=== PATIENT | male | born 1975 | race Caucasian/White ===

== ENCOUNTER → 2020-09-29 08:11 | Outpatient (REF) | payer OTHER, SELFPAY ==
--- NOTE | 2020-09-29 09:54 | ECG_ITS ---
Test Reason : SOB Blood Pressure : / mmHG Vent. Rate : 084 BPM Atrial Rate : 084 BPM P-R Int : 144 ms QRS Dur : 094 ms QT Int : 362 ms P-R-T Axes : 057 -13 033 degrees QTc Int : 427 ms Normal sinus rhythm Normal ECG No previous ECGs available Referred By: Juan Ramon Zuniga Electronically Signed By:VANNESA LEVIN MD
--- NOTE | 2020-09-29 10:07 | XR_ITS ---
EXAMINATION: XR CHEST CLINICAL INFORMATION: Asthma COMPARISON: October 04, 2011 TECHNIQUE: 2 views of the chest were obtained. FINDINGS: There is no evidence of acute parenchymal disease, pneumothorax, or pleural effusion. Heart normal size. No evidence of pulmonary edema. Endothoracic fat deposition is noted bilaterally. XR/XR chest 2V IMPRESSION: No acute disease.
== END ==
LOC: HO.CARD 08:11
PROVIDERS: PCP Internal Medicine; Visit Provider Surgery
DX: E66.01 Morbid (severe) obesity due to excess calories (principal); K21.9 Gastro-esophageal reflux disease without esophagitis; E03.9 Hypothyroidism, unspecified; G47.30 Sleep apnea, unspecified; J45.909 Unspecified asthma, uncomplicated; Z79.899 Other long term (current) drug therapy
CPT/HCPCS: 71046; 93005

== ENCOUNTER 2020-10-03 08:35 | Outpatient (REF) | payer OTHER, SELFPAY ==
[2020-10-03 09:45] LABS: MANUAL DIFF FLAG NO
[2020-10-03 09:54] LABS: Basophils Percent Auto 0.4 % (0-2); Eosinophils Absolute Auto 0.1 X10*3/uL (0.0-0.4); Eosinophils Percent Auto 2.4 % (0-4); Hematocrit 46.2 % (42-52); Hemoglobin 16.2 g/dl (14.0-18.0); Imm Gran Abs Auto 0.01 X10*3/uL (0.00-0.03); Imm Gran Pct Auto 0.2 % (0.0-0.4); Lymphocytes Absolute Auto 1.2 X10*3/uL (1.2-4.9); Lymphocytes Percent Auto 21.9 % (20-40); Mean Corpuscular HGB Conc 35.1 g/dl (31.0-36.0); Mean Corpuscular Volume 88.5 fL (80-98); Mean Platelet Volume 11.1 fL (9.4-12.4); Monocytes Absolute Auto 0.5 X10*3/uL (0.1-1.2); Monocytes Percent Auto 9.7 % (2-11); Neutrophils Absolute Auto 3.6 X10*3/uL (2.0-8.3); Neutrophils Percent Auto 65.4 % (45-73); Platelet Count 182 X10*3/uL (160-400); Red Blood Count 5.22 X10*6/uL (4.60-5.80); White Blood Count 5.5 X10*3/uL (4.8-10.8)
[2020-10-03 10:16] LABS: Estimated Average Glucose 220 mg/dL; Hemoglobin A1c % 9.3 %
[2020-10-03 10:37] LABS: Alanine Aminotransferase 183 U/L (0-40); Albumin Level 4.4 g/dL (3.5-5.0); Alkaline Phosphatase 70 U/L (39-117); Anion Gap 17 (12-20); Aspartate Amino Transferase 76 U/L (5-37); Bilirubin Total 0.8 mg/dL (0.0-1.0); Blood Urea Nitrogen 22 mg/dL (9-16); C Reactive Protein 0.51 mg/dL (< or = 0.50); Calcium 9.5 mg/dL (8.4-10.2); Carbon Dioxide 22 mmol/L (22-29); Chloride 103 mmol/L (96-108); Cholesterol 230 mg/dL; Estimated Glomerular Filt Rate > 60; Glucose Random 244 mg/dL (60-115); HDL Cholesterol 53 mg/dL; LDL Cholesterol Calculated 143 mg/dl; Sodium 138 mmol/L (135-145); Total Protein 6.8 g/dL (6.5-8.0); Triglycerides 171 mg/dL
[2020-10-03 10:44] LABS: Ferritin 1055 ng/mL (20-250); TSH reflex Free T4 6.09 mIU/mL (0.32-4.0); Vitamin D 25-OH Total 15.6 ng/mL (>30)
[2020-10-03 10:50] LABS: Vitamin B12 442 pg/mL (200-900)
[2020-10-03 11:16] LABS: Free T4 (Free Thyroxine) 0.97 ng/dL (0.71-1.85)
[2020-10-04 17:33] LABS: Insulin Level Total 33.9 uIU/mL
[2020-10-05 10:42] LABS: Calcium (PTHI) 9.9 mg/dL (8.6-10.3); PTHI 33 pg/mL (14-64)
[2020-10-06 00:53] LABS: Zinc 86 mcg/dL (60-130)
[2020-10-06 18:33] LABS: Vitamin B1 7 nmol/L (8-30)
[2020-10-08 16:07] LABS: Vitamin A 61 mcg/dL (38-98)
== END 2020-10-03 08:36 | disposition home or self-care (01) ==
LOC: HO.LAB 08:35
PROVIDERS: PCP Internal Medicine; Visit Provider Surgery
DX: J45.909 Unspecified asthma, uncomplicated (principal); G47.30 Sleep apnea, unspecified; K21.9 Gastro-esophageal reflux disease without esophagitis; E03.9 Hypothyroidism, unspecified; E66.01 Morbid (severe) obesity due to excess calories
CPT/HCPCS: 36415; 80053; 80061; 82306; 82607; 82728; 82746; 83036; 83525; 83970; 84425; 84439; 84443; 84590; 84630; 85025; 86140

== ENCOUNTER 2020-10-06 06:58 | Day surgery (SDC) | payer OTHER, SELFPAY ==
[2020-10-05 10:48] VITALS: BMI 40.1
--- NOTE | 2020-10-05 12:54 | HO.ANESPROP2 ---
Documented by User: Pamela Fang 10/05/20 12:56 HPI - Anesthesia Eval Consult details Narrative: 45yo M for Upper Endoscopy PMFSH Past Medical History Medical History (Updated 09/29/20 @ 08:28 by Juan Ramon Zuniga MD) Asthma GERD (gastroesophageal reflux disease) Hypothyroidism Insomnia Insulin dependent diabetes mellitus Morbid obesity Sleep apnea Steatosis, liver Family History Family History (Updated 09/29/20 @ 08:31 by Jaun Ramon Zuniga MD) Father No problems noted. Mother No problems noted. Surgical History Surgical History (Updated 09/29/20 @ 08:28 by Juan Ramon Zuniga MD) H/O discectomy H/O rotator cuff surgery H/O umbilical hernia repair History of spinal fusion Social History Social History (Updated 09/29/20 @ 08:29 by Juan Ramon Zuniga MD) Alcohol intake: current Alcohol type: beer and wine Smoking Status: Former smoker Tobacco Type: Cigarette Cigarettes Per Day: 12 Years Smoked: 20 Use of substances other than those prescribed or required for medical reasons: No Advance Directives: No Advance Directives Information Provided: No Advance Directives on File: No Meds Allergies Allergy/AdvReac Type Severity Reaction Status Date / Time No Known Allergies Allergy Verified 09/29/20 08:15 Home Medications Medication Instructions Recorded Confirmed Type albuterol sulfate 90 mcg/actuation 2 puff INHALATION Q4-6H PRN 09/29/20 09/29/20 History aerosol inhaler fluticasone furoate 200 1 inh INHALATION DAILY 09/29/20 09/29/20 History mcg-vilanterol 25 mcg/dose inhalation powder insulin glargine 100 unit/mL 20 unit SUBCUT DAILY 09/29/20 09/29/20 History subcutaneous solution levothyroxine 13 mcg capsule 13 mcg PO DAILY 09/29/20 09/29/20 History metformin 500 mg tablet 500 mg PO BID 09/29/20 09/29/20 History omeprazole 40 mg capsule,delayed 40 mg PO DAILY 09/29/20 09/29/20 History release trazodone 150 mg tablet 150 mg PO BEDTIME PRN 09/29/20 09/29/20 History Exam Exam Date and Time: October 05, 2020 1254 Height,Weight and Vital Signs: Height 6 ft 2 in Weight 141.974 kg Pertinent Lab Results Pertinent Lab Results: Laboratory Tests 10/03/20 10/03/20 08:55 08:55 WBC 5.5 Hgb 16.2 Hct 46.2 Plt Count 182 Sodium 138 Potassium 4.0 Chloride 103 Carbon Dioxide 22 BUN 22 H Creatinine 1.01 Assessment and Plan Assessment Anesthesia Assessment: Chart Reviewed Documented by User: Dimitry Mao 10/06/20 07:21 PMF Past Medical History Medical History (Updated 09/29/20 @ 08:28 by Juan Ramon Zuniga MD) Asthma GERD (gastroesophageal reflux disease) Hypothyroidism Insomnia Insulin dependent diabetes mellitus Morbid obesity Sleep apnea Steatosis, liver Family History Family History (Updated 09/29/20 @ 08:31 by Juan Ramon Zuniga MD) Father No problems noted. Mother No problems noted. Surgical History Surgical History (Updated 09/29/20 @ 08:28 by Juan Ramon Zuniga MD) H/O discectomy H/O rotator cuff surgery H/O umbilical hernia repair History of spinal fusion Social History Social History (Updated 09/29/20 @ 08:29 by Juan Ramon Zuniga MD) Alcohol intake: current Alcohol type: beer and wine Smoking Status: Former smoker Tobacco Type: Cigarette Cigarettes Per Day: 12 Years Smoked: 20 Use of substances other than those prescribed or required for medical reasons: No Advance Directives: No Advance Directives Information Provided: No Advance Directives on File: No Meds Allergies Allergy/AdvReac Type Severity Reaction Status Date / Time No Known Allergies Allergy Verified 09/29/20 08:15 Home Medications Medication Instructions Recorded Confirmed Type albuterol sulfate 90 mcg/actuation 2 puff INHALATION Q4-6H PRN 09/29/20 09/29/20 History aerosol inhaler fluticasone furoate 200 1 inh INHALATION DAILY 09/29/20 09/29/20 History mcg-vilanterol 25 mcg/dose inhalation powder insulin glargine 100 unit/mL 20 unit SUBCUT DAILY 09/29/20 09/29/20 History subcutaneous solution levothyroxine 13 mcg capsule 13 mcg PO DAILY 09/29/20 09/29/20 History metformin 500 mg tablet 500 mg PO BID 09/29/20 09/29/20 History omeprazole 40 mg capsule,delayed 40 mg PO DAILY 09/29/20 09/29/20 History release trazodone 150 mg tablet 150 mg PO BEDTIME PRN 09/29/20 09/29/20 History Exam Airway Mallampati Class: II TM Dist: >3cm Neck ROM: Full Loose/Missing/Broken Teeth: No Heart: rrr+[id number] Lungs: cta b/l Assessment and Plan Assessment Anesthesia Assessment: Anesthesia Plan Discussed, PAT Visit and Chart Reviewed Final Anesthetic Review NPO: Yes ASA Class: II and III Final Preanesthetic Review: No Changes in Pt Med Stat, Meds/Allgs Chart Reviewed, Consent Obtained/Reviewed and Anes Risks/Benef Reviewed Patient Risk: Low Procedure Risk: Low Assessment/Block/Sedation in SS: Assess/Block/Sedation-SS Anesthetic Plan Anesthetic Plan: MAC: Disposition: Standard PACU
--- NOTE | 2020-10-05 22:11 | MHC.SHP ---
Pre-Procedural Eval Section A The patient is an INPATIENT: No The History & Physical has been completed within 30 days and I have reviewed it.: Yes Section B Chief Complaint: GERD Details of Present Illness: GERD Relevant Family History (Specify if Yes): No Relevant Social History: None Present Medications: see Short Stay Collaborative assessment Medical History: No relevant PMH History of Previous Operations: No relevant previous surgery Allergies: Allergies Allergy/AdvReac Type Severity Reaction Status Date / Time No Known Allergies Allergy Verified 09/29/20 08:15 Review of Systems Sugical H&P ROS: Negative: Constitution, Cardiovascular, Respiratory, Neurological, Psychiatric, Hem-Onc, Allergic/Immunologic, Gastrointestinal, Genitourinary, Musculoskeletal, Integumentary, Endocrine and Eyes/Ears/Nose/Throat Exam Surgical H&P Exam: Normal: HEENT, Normal: Heart, Normal: Lungs, Normal: Extremities, Normal: Abdomen, Normal: Skin and Normal: Neurological Plan Diagnosis/Plan: Unchanged I have reviewed the history and physical and performed a pertinent physical examination on my patient. No changes have occurred unless specified.
[2020-10-06 07:27] VITALS: BP 129/83; PULSE 90; RESP 18; TEMP 36.7; O2SAT 96; BMI 38.6
[2020-10-06 07:36] LABS: Glucose, Whole Blood 179 mg/dL (60-115)
[2020-10-06] MEDS: Lactated Ringers 1,000 ML 100 ML IVCONT (07:37)
--- NOTE | 2020-10-06 07:54 | PM.OP ---
Brief Operative Note Date of Service: 10/06/20 Pre-op diagnosis: GERD Post-op diagnosis: same (1) esophagitis grade I, 2) gastritis) Procedure: PROCEDURE DATE: 10/06/2020 PREOPERATIVE DIAGNOSIS: GERD, POSTOPERATIVE DIAGNOSIS: Same as above. 1) esophagitis grade I PROCEDURE: [id number] with biopsies Surgeon: Herman Zuniga M.D.. Ph.D. Inspector Optical Instrument: None Anesthesia: IV sedation Estimated blood loss: Minimal FINDINGS AND PROCEDURE: OPERATIVE INDICATIONS: The patient is a 45 year old male known to ms who is being evaluated for morbid obesity. The patient has significant history of GERD and is PPI-dependent. Based on this information I recommended an upper endoscopy to evaluate the patient's symptoms. Risks and complications of the surgery were discussed with the patient in advance particularly the possibility of perforation or bleeding that may require surgical intervention. The patient understood the risks and was in agreement with the plan. PROCEDURE: After informed consent was obtained by the patient, the patient was transferred to the Operating Room and was placed in the supine position. After successful induction of IV sedation, a mouth block was inserted and the patient was placed in the left lateral decubitus position. An upper endoscopy was performed next, the oropharynx and esophagus appeared within the normal limits. There was no hiatal hernia. The z-line was irregular with tongues of gastric mucosa protruding into the esophagus in less than 25% circumference. Two biopsies were obtained from the distal esophagus 2-3 cm proximal to the GE junction and two additional biopsies from the GE junction. The stomach was entered and it appeared to be of normal size. There was mild gastritis at the antrum. There was no stricture or ulcer. Biopsies were obtained from the proximal stomach as well as the distal antrum. No significant bleeding was noted from any of the biopsy sites. The scope was then advanced into the duodenum which appeared to be normal as well. At that point the duodenum and the sleeve were decompressed and the scope was withdrawn from the patient's mouth. The patient extubated and was transferred in stable condition to the Recovery Room for further care. I was present and performed all steps of the procedure. There were no residents to assist with this case. Herman Zungia M.D., Ph.D. Surgeon: Juan Ramon Zuniga MD Anesthesia: MAC Estimated blood loss (mL): 0 IV fluids (mL): 500 Urine output (mL): 0 (No Flores to record) Pathology: other (1) GE junction x2, 2) distal esophagus x2, 3) Proximal stomach x1, 4) Pre-pyloric stomach x1) Condition: stable Disposition: PACU
[2020-10-06 08:02] LABS: COVID-19 Test Negative (Negative)
[2020-10-06 08:36] VITALS: BP 109/61; PULSE 92; RESP 12; TEMP 36.1; O2SAT 97
[2020-10-06 08:51] VITALS: BP 107/61; PULSE 82; RESP 16; O2SAT 95
[2020-10-06 09:06] VITALS: BP 106/69; PULSE 70; RESP 16; O2SAT 96
--- NOTE | 2020-10-06 09:31 | HO.POSTANES ---
Post Anesthesia Evaluation Post Anesthesia Evaluation Vital Signs: Vital Signs Temp Pulse Resp BP Pulse Ox 10/06/20 09:06 97 F 70 16 106/69 96 10/06/20 08:51 82 16 107/61 95 10/06/20 08:36 97 F 92 12 109/61 97 10/06/20 07:27 98.0 F 90 18 129/83 96 Anesthesia: Monitored Mental Status: Awake Pain Control: Satisfactory Nausea/Vomiting: None Hydration: Adequate Anesthesia-Related Issues: No Anes. Related Issues
== END 2020-10-06 09:33 ==
LOC: HO.SSS 06:58
PROVIDERS: PCP Internal Medicine; Visit Provider Surgery
PROC: 0DJ08ZZ Inspection of Upper Intestinal Tract, Via Natural or Artificial Opening Endoscopic (ICD-10-PCS; CPT 43235; principal; 2020-10-06 08:10)
DX: K21.00 Gastro-esophageal reflux disease with esophagitis, without bleeding (principal); K29.50 Unspecified chronic gastritis without bleeding; E66.01 Morbid (severe) obesity due to excess calories; Z68.41 Body mass index [BMI] 40.0-44.9, adult; E11.9 Type 2 diabetes mellitus without complications; Z79.4 Long term (current) use of insulin; G47.30 Sleep apnea, unspecified; J45.909 Unspecified asthma, uncomplicated; F17.210 Nicotine dependence, cigarettes, uncomplicated; Z79.51 Long term (current) use of inhaled steroids; Z79.899 Other long term (current) drug therapy
CPT/HCPCS: 43239; 36415; 82947; 87635; 88305; 88342

== ENCOUNTER → 2020-10-17 11:22 | Outpatient (BNVA) | payer OTHER, SELFPAY | PROVIDERS: PCP Internal Medicine; Visit Provider Surgery ==

== ENCOUNTER → 2020-10-24 08:11 | Outpatient (BNVA) | payer OTHER, SELFPAY | PROVIDERS: PCP Internal Medicine; Visit Provider Dietitian, Registered ==

== ENCOUNTER 2020-11-02 08:44 | Outpatient (REF) | payer OTHER, SELFPAY ==
--- NOTE | ~2020-11-02 | FL_ITS ---
EXAMINATION: XR GI SERIES CLINICAL INFORMATION: Asthma COMPARISON: None TECHNIQUE: Air contrast upper GI examination FINDINGS: There is normal apposition of the vocal cords while saying E. There is normal elevation of the soft palate while saying Candy. There is no evidence of nasopharyngeal reflux or tracheal aspiration. The esophagus has normal distensibility without abnormal mass, stricture, or ulceration. No hiatal hernia. There was a wisp of gastroesophageal reflux elicited on water siphon test which cleared very rapidly. There is normal distensibility of the stomach without abnormal mass or ulceration. There was no delay in gastric emptying. The duodenal bulb and sweep appeared unremarkable. FLUOROSCOPY TIME: 2.0 Minutes DOSE AREA PRODUCT: 20.753 Gy centimeters squared FL/FL upper GI series IMPRESSION: Essentially unremarkable air-contrast upper GI examination.
--- NOTE | ~2020-11-02 | US_ITS ---
EXAMINATION: US COMPLETE ABDOMEN WITH LIVER ELASTOGRAPHY CLINICAL INFORMATION: Obesity COMPARISON: None. TECHNIQUE: Real-time imaging of the abdominal viscera. Noninvasive ultrasound liver fibrosis assessment is performed using Micheal ElastPQ point quantification shear wave elastography (pSWE) with a C5-2 MHz transducer. Multiple elastography samples are obtained. FINDINGS: PANCREAS: Not well visualized due to bowel gas ABDOMINAL AORTA: The proximal, middle, and distal aortic segments are normal in caliber. INFERIOR VENA CAVA: Visualized portions are normal. LIVER: Liver echotexture is increased probably representing fatty infiltration. There are hypoechoic areas adjacent to the gallbladder and in the periportal region which are characteristic location for focal fatty sparing. The liver contour is normal. The liver is enlarged. No focal lesion or intrahepatic biliary duct dilatation. The right lobe measures 23 cm in length. The left lobe measures 14 cm in length. Portal flow is normal/hepatopedal Shear wave liver elastography median stiffness is 1.7 m/s (reference: normal median stiffness is 1.3 m/s or less). IQR/median stiffness to assess sampling precision is 0.2 (reference: good quality data set is IQR/median stiffness of 0.15 or less). GALLBLADDER: Normal. The gallbladder is physiologically distended without evidence of stones, sludge, polyps, wall thickening or pericholecystic fluid. COMMON BILE DUCT: Normal in caliber measuring 0.6 cm in diameter. RIGHT KIDNEY: Normal. No hydronephrosis. No renal calculi or focal parenchymal lesions. The kidney measures 12.4 cm in maximum dimension. LEFT KIDNEY: Normal. No hydronephrosis. No renal calculi or focal parenchymal lesions. The kidney measures 13 cm in maximum dimension. SPLEEN: The spleen is slightly enlarged.. The spleen measures 14 cm in maximum dimension. FREE FLUID: None. US/US abdomen comp w elastography IMPRESSION: 1. Impression: Enlarged echogenic liver probably representing fatty infiltration. Slightly enlarged spleen. Limited visualization of the pancreas. 2. Liver elastography: Liver stiffness is elevated questionable for compensated advanced chronic liver disease. Further testing for confirmation should be considered. REFERENCE: Society of Radiologists in Ultrasound Liver Stiffness Thresholds (2020): LIVER STIFFNESS THRESHOLDS: *Liver Stiffness equal or less than 1.3 m/s: High probability of being normal. *Liver Stiffness less than 1.7 m/s: In the absence of other known clinical signs, rules out compensated advanced chronic liver disease. *Liver Stiffness 1.7-2.1 m/s: Suggestive of compensated advanced chronic liver disease but need further test for confirmation. *Liver Stiffness over 2.1 m/s: Rules in compensated advanced chronic liver disease. *Liver Stiffness over 2.4 m/s: Suggestive of clinically significant portal hypertension. QUALITY OF DATA SET: *IQR/Median value equal or less than 0.15 implies a quality data set. *IQR/Median value over 0.15 implies a poor quality data set. SIGNIFICANT CHANGE FROM PRIOR EXAM: Significant change if liver stiffness measurement is 10% or greater from prior exam. OTHER CONSIDERATIONS: The stage of liver fibrosis may be overestimated in the setting of acute hepatitis, liver inflammation, elevated liver function tests, hepatic vascular congestion, obstructive cholestasis, non-fasting state, and infiltrative diseases such as amyloidosis and lymphoma. In some patients with NAFLD, the liver stiffness thresholds for compensated advanced chronic liver disease may be lower. In causes other than viral hepatitis and NAFLD, liver stiffness thresholds are not well established.
== END 2020-11-02 08:45 | disposition home or self-care (01) ==
LOC: HO.US 08:44
PROVIDERS: Visit Provider Surgery
DX: Z01.818 Encounter for other preprocedural examination (principal); E66.01 Morbid (severe) obesity due to excess calories; K21.9 Gastro-esophageal reflux disease without esophagitis; E03.9 Hypothyroidism, unspecified; G47.30 Sleep apnea, unspecified; J45.909 Unspecified asthma, uncomplicated
CPT/HCPCS: 74240; 76705; 76981

== ENCOUNTER → 2020-11-08 11:16 | Outpatient (BNVA) | payer OTHER, SELFPAY | PROVIDERS: PCP Internal Medicine; Visit Provider Social Worker Clinical ==

== ENCOUNTER → 2020-11-14 08:18 | Outpatient (BNVA) | payer OTHER, SELFPAY | PROVIDERS: PCP Internal Medicine; Visit Provider Surgery ==

== ENCOUNTER → 2020-11-17 08:07 | Outpatient (BNVA) | payer OTHER, SELFPAY | PROVIDERS: PCP Internal Medicine; Visit Provider Dietitian, Registered ==

== ENCOUNTER → 2020-11-29 08:13 | Outpatient (BNVA) | payer OTHER, SELFPAY | PROVIDERS: PCP Internal Medicine; Visit Provider Physician Assistant ==

== ENCOUNTER → 2020-12-02 19:31 | Outpatient (BNVA) | payer OTHER, SELFPAY | PROVIDERS: PCP Internal Medicine; Visit Provider Surgery ==

== ENCOUNTER 2020-12-03 09:56 | Outpatient (REF) | payer OTHER, SELFPAY ==
[2020-12-03 11:55] LABS: MANUAL DIFF FLAG NO
[2020-12-03 12:16] LABS: Basophils Percent Auto 0.6 % (0-2); Eosinophils Absolute Auto 0.1 X10*3/uL (0.0-0.4); Eosinophils Percent Auto 2.6 % (0-4); Hematocrit 47.1 % (42-52); Imm Gran Abs Auto 0.01 X10*3/uL (0.00-0.03); Imm Gran Pct Auto 0.2 % (0.0-0.4); Lymphocytes Absolute Auto 0.9 X10*3/uL (1.2-4.9); Lymphocytes Percent Auto 17.6 % (20-40); Mean Corpuscular Hemoglobin 30.7 pg (27.0-33.0); Mean Corpuscular Volume 90.2 fL (80-98); Mean Platelet Volume 11.4 fL (9.4-12.4); Monocytes Absolute Auto 0.5 X10*3/uL (0.1-1.2); Monocytes Percent Auto 10.1 % (2-11); Neutrophils Absolute Auto 3.7 X10*3/uL (2.0-8.3); Neutrophils Percent Auto 68.9 % (45-73); Platelet Count 181 X10*3/uL (160-400); Red Blood Count 5.22 X10*6/uL (4.60-5.80); Red Cell Distribution Width 12.7 % (11.0-16.0); White Blood Count 5.4 X10*3/uL (4.8-10.8)
[2020-12-03 12:24] LABS: Prothrombin Time 12.3 SEC (10.8-13.0)
[2020-12-03 12:26] LABS: Partial Thromboplastin Time 34.2 SEC (24.1-38.0)
[2020-12-03 12:29] LABS: Estimated Average Glucose 114 mg/dL; Hemoglobin A1c % 5.6 %
[2020-12-03 13:01] LABS: Alanine Aminotransferase 83 U/L (0-40); Albumin Level 4.5 g/dL (3.5-5.0); Alkaline Phosphatase 54 U/L (39-117); Anion Gap 13 (12-20); Aspartate Amino Transferase 53 U/L (5-37); Bilirubin Total 0.7 mg/dL (0.0-1.0); Blood Urea Nitrogen 20 mg/dL (9-16); C Reactive Protein 0.43 mg/dL (< or = 0.50); Calcium 9.4 mg/dL (8.4-10.2); Carbon Dioxide 26 mmol/L (22-29); Chloride 105 mmol/L (96-108); Cholesterol 187 mg/dL; Estimated Glomerular Filt Rate > 60; Glucose Random 111 mg/dL (60-115); HDL Cholesterol 69 mg/dL; LDL Cholesterol Calculated 105 mg/dl; Potassium 4.4 mmol/L (3.3-5.1); Sodium 140 mmol/L (135-145); Triglycerides 66 mg/dL
[2020-12-03 13:08] LABS: TSH reflex Free T4 2.34 uIU/mL (0.32-4.0)
[2020-12-05 21:42] LABS: Insulin Level Total 25.6 uIU/mL
== END 2020-12-03 09:57 | disposition home or self-care (01) ==
LOC: HO.LAB 09:56
PROVIDERS: PCP Internal Medicine; Visit Provider Surgery
DX: Z13.89 Encounter for screening for other disorder (principal)
CPT/HCPCS: 36415; 80053; 80061; 83036; 83525; 84443; 85025; 85610; 85730; 86140; 86850; 86900

== ENCOUNTER 2020-12-06 08:22 | Inpatient (IN) | payer OTHER, SELFPAY ==
[2020-12-05 10:05] VITALS: BMI 35.3
--- NOTE | 2020-12-05 11:46 | HO.ANESPROP2 ---
Documented by User: Pamela Annalisa 12/05/20 11:51 HPI - Anesthesia Eval Consult details Narrative: 45yo M for Gastrectomy Sleeve Severe PONV PMFSH Active Problems Active Problems: All Active Problems (Updated 12/05/20 @ 10:00 by Sera Rodgers) Vitamin B1 deficiency (Acute) Vitamin B12 deficiency (Acute) Esophagitis determined by endoscopy (Acute) Obesity (Acute) BMI 38.0-38.9,adult (Acute) BMI 37.0-37.9, adult (Acute) Adjustment disorder, unspecified (Acute) BMI over 35 (Acute) Insomnia (Acute) Asthma (Acute) Steatosis, liver (Acute) Sleep apnea (Acute) GERD (gastroesophageal reflux disease) (Acute) Hypothyroidism (Acute) Insulin dependent diabetes mellitus (Acute) Morbid obesity (Acute) Past Medical History Medical History Asthma Back pain Depression GERD (gastroesophageal reflux disease) Hypothyroidism Insomnia Insulin dependent diabetes mellitus Morbid obesity Numbness in both legs PONV (postoperative nausea and vomiting) Sleep apnea Steatosis, liver Family History Family History Father No problems noted. Mother No problems noted. Surgical History Surgical History H/O discectomy H/O rotator cuff surgery H/O umbilical hernia repair History of spinal fusion Social History Social History Are you a primary patient care coordinator to a significant other at home: No Do you presently have visiting nurse or other home services: No Alcohol intake: current Alcohol intake frequency: holidays/special occasions only Alcohol type: beer and wine Smoking Status: Former smoker Years Smoked: 20 Smoking Quit Date: 1999 Use of substances other than those prescribed or required for medical reasons: No Have you been hit, kicked, punched, or otherwise hurt by someone within the past year? If so, by whom?: No Advance Directives: No Advance Directives Information Provided: No Advance Directives on File: No Meds Allergies Allergy/AdvReac Type Severity Reaction Status Date / Time No Known Allergies Allergy Verified 12/05/20 10:00 Home Medications Medication Instructions Recorded Confirmed Last Taken Type albuterol sulfate 90 mcg/actuation 2 puff INHALATION Q4-6H PRN 09/29/20 12/05/20 Unknown History aerosol inhaler fluticasone furoate 200 1 inh INHALATION DAILY 09/29/20 12/05/20 Unknown History mcg-vilanterol 25 mcg/dose inhalation powder insulin glargine 100 unit/mL 20 unit SUBCUT BEDTIME 09/29/20 12/05/20 Unknown History subcutaneous solution metformin 500 mg tablet 500 mg PO BID 09/29/20 12/05/20 Unknown History trazodone 150 mg tablet 150 mg PO BEDTIME PRN 09/29/20 12/05/20 Unknown History ondansetron HCl [Zofran] 4 mg PO Q12H PRN 12/05/20 12/05/20 Unknown History Exam Exam Date and Time: December 05, 2020 1146 Height,Weight and Vital Signs: Height 6 ft 2 in Weight 124.738 kg Pertinent Lab Results Pertinent Lab Results: Laboratory Tests 12/03/20 10:41 Blood Type A Positive Antibody Screen NEGATIVE Laboratory Tests 12/03/20 12/03/20 11:09 11:09 WBC 5.4 Hgb 16.0 Hct 47.1 Plt Count 181 Sodium 140 Potassium 4.4 Chloride 105 Carbon Dioxide 26 BUN 20 H Creatinine 0.92 Narrative Narrative: EKG 09/2020 Normal sinus rhythm Normal ECG No previous ECGs available Assessment and Plan Assessment Anesthesia Assessment: Chart Reviewed Documented by User: Dimitry Mao 12/06/20 10:31 [facility] Past Medical History Medical History Asthma Back pain Depression GERD (gastroesophageal reflux disease) Hypothyroidism Insomnia Insulin dependent diabetes mellitus Morbid obesity Numbness in both legs PONV (postoperative nausea and vomiting) Sleep apnea Steatosis, liver Family History Family History Father No problems noted. Mother No problems noted. Surgical History Surgical History H/O discectomy H/O rotator cuff surgery H/O umbilical hernia repair History of spinal fusion Social History Social History Are you a primary patient care coordinator to a significant other at home: No Do you presently have visiting nurse or other home services: No Alcohol intake: current Alcohol intake frequency: holidays/special occasions only Alcohol type: beer and wine Smoking Status: Former smoker Years Smoked: 20 Smoking Quit Date: 1999 Use of substances other than those prescribed or required for medical reasons: No Have you been hit, kicked, punched, or otherwise hurt by someone within the past year? If so, by whom?: No Advance Directives: No Advance Directives Information Provided: No Advance Directives on File: No Meds Allergies Allergy/AdvReac Type Severity Reaction Status Date / Time No Known Allergies Allergy Verified 12/05/20 10:00 Home Medications Medication Instructions Recorded Confirmed Last Taken Type albuterol sulfate 90 mcg/actuation 2 puff INHALATION Q4-6H PRN 09/29/20 12/05/20 Unknown History aerosol inhaler fluticasone furoate 200 1 inh INHALATION DAILY 09/29/20 12/05/20 Unknown History mcg-vilanterol 25 mcg/dose inhalation powder insulin glargine 100 unit/mL 20 unit SUBCUT BEDTIME 09/29/20 12/05/20 Unknown History subcutaneous solution metformin 500 mg tablet 500 mg PO BID 09/29/20 12/05/20 Unknown History trazodone 150 mg tablet 150 mg PO BEDTIME PRN 09/29/20 12/05/20 Unknown History ondansetron HCl [Zofran] 4 mg PO Q12H PRN 12/05/20 12/05/20 Unknown History Exam Airway Mallampati Class: III TM Dist: >3cm Neck ROM: Full Loose/Missing/Broken Teeth: No Heart: rrr+s1s2 Lungs: cta b/l Assessment and Plan Assessment Anesthesia Assessment: Anesthesia Plan Discussed, PAT Visit and Chart Reviewed Final Anesthetic Review NPO: Yes ASA Class: II Final Preanesthetic Review: No Changes in Pt Med Stat, Meds/Allgs Chart Reviewed, Consent Obtained/Reviewed and Anes Risks/Benef Reviewed Patient Risk: Low Procedure Risk: Low Assessment/Block/Sedation in SS: Assess/Block/Sedation-SS Anesthetic Plan Anesthetic Plan: GA and Agree w/ Assess. and Plan Disposition: Standard PACU
--- NOTE | 2020-12-05 19:27 | P.HPSUR_ITS ---
Pre-Procedural Eval Section A The patient is an INPATIENT: Yes The History & Physical has been completed within 30 days and I have reviewed it.: Yes Section B Chief Complaint: obesity Details of Present Illness: obesity Relevant Family History (Specify if Yes): Yes Relevant Social History: None Medical History: No relevant PMH History of Previous Operations: No relevant previous surgery Allergies: Allergies Allergy/AdvReac Type Severity Reaction Status Date / Time No Known Allergies Allergy Verified 12/05/20 10:00 Review of Systems Sugical H&P ROS: Negative: Constitution, Cardiovascular, Respiratory, Ne urological, Psychiatric, Hem-Onc, Allergic/Immunologic, Gastrointestinal, Genitourinary, Musculoskeletal, Integumentary, Endocrine and Eyes/Ears/Nose/Throat Exam Surgical H&P Exam: Normal: HEENT, Normal: Heart, Normal: Lungs, Normal: Extremities, Normal: Abdomen, Normal: Skin and Normal: Neurological Plan Diagnosis/Plan: Unchanged I have reviewed the history and physical and performed a pertinent physical examination on my patient. No changes have occurred unless specified.
[2020-12-06] VITALS (17 sets, daily range): BP systolic 104–155; BP diastolic 58–100; PULSE 70–113; RESP 16–18; TEMP 36.5–37.3; O2SAT 93–99
[2020-12-06 08:30] LABS: Glucose, Whole Blood 100 mg/dL (60-115)
[2020-12-06 08:50] LABS: COVID-19 Test Negative (Negative)
[2020-12-06] MEDS: Lactated Ringers 1,000 ML 999 ML IV (08:56)
[2020-12-06] MEDS: Lactated Ringers 1,000 ML 100 ML IVCONT (08:56)
[2020-12-06] MEDS: Scopolamine 1.5 MG PATCH.TD.3 TRANSDERMA (09:00)
--- NOTE | 2020-12-06 15:24 | PM.OP ---
Brief Operative Note Date of Service: 12/06/20 Pre-op diagnosis: Severe obesity and comorbidities (see below) Post-op diagnosis: same Procedure: INITIAL PATIENT BMI ON PRESENTATION AT OUR OFFICE: 39.6 kg/m2 LAST BMI BEFORE SURGERY: 35.8 kg/m2 COMORBIDITIES: uncontrolled insulin dependent diabetes, sleep apnea, asthma, GERD, hypothyroidism, insomnia, liver steatosis, liver fibrosis, esophagitis The patient participated in an intensive weekly lifestyle intervention and exercise program during which the patient has lost between the initial office visit and the last preoperative visit 32.8lbs, or 10.6% of initial actual body weight. The patient met the BMI-criteria for bariatric surgery based on the BMI on initial presentation. The patient should not be penalized for achieving such weight loss because it is not sustainable long-term without surgical intervention and it was achieved in preparation for bariatric surgery under my direction and based on my published research ([email or web address] and [email or web address]) that a 10% preoperative weight loss improves long-term weight loss after surgery and reduces perioperative complications. Insurance carriers such as [facility] have endorsed my recommendations and have included in their policies criteria to include a 10% preoperative weight loss requirement. PROCEDURE: Esophago-gastroscopy, extensive laparoscopic lysis of adhesions, laparoscopic sleeve gastrectomy and laparoscopic gastropexy INDICATIONS: This is a 45 year-old male who was electively scheduled for laparoscopic, possibly open sleeve gastrectomy. The risks and complications of the procedure were discussed with the patient in advance, particularly the possibility of ; pulmonary embolism; staple line leak; bleeding; GERD; cardiac, pulmonary, or renal complications; as well as long-term problems such as insufficient weight loss, vitamin deficiency, strictures, or ulcers. The patient understood all the risks, and was in agreement to proceed with surgery. DESCRIPTION OF PROCEDURE: After informed consent was obtained from the patient, the patient was given preoperative antibiotics, and was transferred to the operating room. After successful induction of general anesthesia, pneumatic compressive devices were placed on both lower extremities. An upper endoscopy was performed next. The oropharynx and esophagus appeared to be within normal limits. There was a diaphragmatic hernia present of moderate size consistent with the findings of the preoperative upper GI. The stomach was entered. Then after all fluid and air were suctioned and the stomach was fully decompressed, the scope was withdrawn and secured in the mid esophagus. The patient was then prepped and draped in the usual sterile manner, and abdominal access was established at the right upper quadrant with the Gatito technique. A 12 mm blunt port was inserted, and the abdomen was insufflated with CO2 to a pressure of 15 mmHg. Under direct visualization, additional ports were placed, specifically two 5 mm Versi-step ports to the left upper quadrant, and a 5 mm Versi-Step port to the right upper quadrant. 1% lidocaine plan was used to infiltrate all port sites as well as all fascia defects. Following that, the patient was placed in a steep reverse Trendelenburg position. An additional 5 mm port was placed to the right flank for the Mediflex retractor that was used to retract the left lobe of the liver. The liver was thick and the space near the GE junction was very limited making the exposure very limited and contributed to the prolongation of the operation. The gastro-esophageal fat pad was opened with the ultrasonic device (Thunderbeat, Olympus) and the anterior esophagus and hiatus were exposed. The angle of His was opened with the ultrasonic device the fundus of the stomach from any diaphragmatic and splenic attachments. I then opened the gastrocolic ligament between the transverse colon and the greater curvature of the stomach with the ultrasonic device to enter the lesser sac and facilitate the ligation of the short gastric vessels. I started at a mid-point along the greater curvature and using the Thunderbeat, all short gastric vessels were divided all the way to the angle of His until the left flor was completely dissected at its entirety. I then divided the gastro-colic ligament distally to a distance of about 3-4 cm proximal to the esophagus. There were extensive congenital adhesions between the pancreas and posterior gastric wall. Those were lysed completely with the ultrasonic device. The adhesiolysis together with the patient's body habitus and large amount of intra-abdominal fat made the procedure extremely challenging and was prolonged by approximately 120 min for a total operative time of 3 hours and 30min. The stomach was then divided transversely with one Endo MEGAN-45 purple, one MEGAN-45 orange and five MEGAN-60 articulating orange loads using the AEON stapler and loads. Every effort was made that the gastric sleeve had a tubular shape and an even caliber throughout. Once the sleeve resection was completed, the staple line of the gastric sleeve was reinforced with Hemoclips. The resected stomach was retrieved without difficulty from the Gatito port. A gastropexy was then performed in order to prevent postoperative GERD and partial gastric volvulus. Several interrupted 2.0 Surgidac sutures were placed between the sleeve's staple line and the previously divided greater omentum and gastro-colic ligament using the Endo-Stitch device. An upper endoscopy was performed. There was no narrowing at the GE junction. The scope was easily advanced all the way to the pylorus which was clearly visualized. There was no narrowing anywhere and the sleeve's caliber was even throughout. The sleeve's staple line was inspected and there was no evidence of ischemia, bleeding or dehiscence. At that point the gastroscope was withdrawn from the patient?s mouth while we were decompressing the bowel and the stomach from any remaining air. I looked into the lesser sac to see how the sleeve was situating and it was situating well. There was no bleeding from the staple line, spleen, or short gastric vessels. The Mediflex retractor was removed, and the undersurface of the liver was inspected and there was no bleeding. The patient was placed in supine position. I closed the fascial defect of the 12 mm port site with a figure of eight #1 Polysorb suture. Then 100 cc 0.25 % Marcaine plain with 10 mg of Dexamethasone were used to infiltrate the fascial closure as well as all skin incisions. At this point, the abdomen was deflated, all ports were removed under direct vision, and no bleeding was noted from any of the port sites. The skin incisions were irrigated with saline and were closed with 4-0 absorbable monofilament sutures. Steri-Strips and OpSites were used to cover all incisions. The patient was extubated and was transferred in stable condition to the recovery room for further care. I was present and performed all malik parts of the procedure. Shashank Mcdonald was the orthopedic physician assistant. There were no residents to assist with this case. Herman Zuniga MD, PhD, FACS Surgeon: Juan Ramon Zuniga MD Anesthesia: GETA, local and other (TAP block) Water Resource Specialist: Moriah Mcdonald Estimated blood loss (mL): 30 IV fluids (mL): 3,000 Urine output (mL): 0 (No Flores to record) Pathology: other (Stomach) Condition: stable Disposition: PACU
--- NOTE | 2020-12-06 15:33 | PM.PNGS ---
Subjective Subjective Date of Service: 12/07/20 Interval history: Patient had mild incisional pain but was able to ambulate and use the incentive spirometer. He is tolerating phase 1 bariatric diet. Physical Exam Vital Signs: Vital Signs: Last Vital Signs Temp 99.1 F 12/06/20 15:20 Pulse 99 12/06/20 15:30 Resp 18 12/06/20 15:30 BP 141/94 H 12/06/20 15:30 Pulse Ox 99 12/06/20 15:30 Body Mass Index 35.3 GI: Inspection: Yes normal to inspection, Yes incision (dry, clean and intact) and Yes obesity Extrem: Right lower extremity: normal to inspection (no calf tenderness) Left lower extremity: normal to inspection (no calf tenderness) Progress Note: A&P Assessment and plan (1) Obesity: Status: Acute (2) BMI over 35: Status: Acute (3) S/P laparoscopic sleeve gastrectomy: Status: Acute Assessment and Plan: 35 year old Male was admitted 12/06/2020 with morbid obesity and comorbidities. Problem 1: s/p laparoscopic sleeve gastrectomy, gastropexy and lysis of adhesions Status: Doing well Plan: Check am labs, If OK, will continue phase 1 bariatric diet and discharge later today. (4) Esophagitis determined by endoscopy: Status: Acute (5) Adjustment disorder, unspecified: Problem details: Pt has hx of anx & dep and [place]. Valdivia[place] [place] for maintenance Status: Acute (6) Insomnia: Status: Acute (7) Asthma: Status: Acute (8) Steatosis, liver: Status: Acute (9) Sleep apnea: Problem details: not currently using CPAP Status: Acute (10) GERD (gastroesophageal reflux disease): Status: Acute (11) Hypothyroidism: Status: Acute (12) Insulin dependent diabetes mellitus: Status: Acute (13) Liver fibrosis: Status: Acute (14) Congenital intra-abdominal adhesions: Status: Acute Fall Risk Details Current Medications: Current Medications Generic Name Dose Route Start Last Admin Trade Name Freq PRN Reason Stop Dose Admin Acetaminophen 650 mg 12/06/20 10:29 Acetaminophen 325 Mg Tablet PO ONCE PRN Pain, Mild (Pain Scale 1-3) Albuterol Sulfate 2.5 mg 12/06/20 07:38 Albuterol Sulfate (0.083%) 2.5 Mg/3 Ml Vial.Neb INHALE ONCE PRN Shortness of Breath/Wheezing Fentanyl 50 mcg 12/06/20 10:29 Fentanyl Citrate/Pf 100 Mcg/2 Ml Vial IVPUSH Q5M PRN Pain, Moderate (Pain Scale 4-6 Hydromorphone HCl 0.5 mg 12/06/20 10:29 Hydromorphone Hcl 0.5 Mg/0.5 Ml Syringe IVPUSH Q5M PRN Pain, Severe (Pain Scale 7-10) Lactated Ringer's 1,000 mls @ 100 mls/hr 12/06/20 07:45 12/06/20 08:56 Lr IVCONT 100 mls/hr .Q10H NICHOLE Administration Promethazine HCl 12.5 mg/ 50.5 mls @ 202 mls/hr 12/06/20 10:29 Sodium Chloride IV ONCE PRN Nausea and Vomiting Ondansetron HCl 4 mg 12/06/20 10:29 Ondansetron Hcl 4 Mg/2 Ml Vial IVPUSH ONCE PRN Nausea and Vomiting Oxycodone HCl 10 mg 12/06/20 10:29 Oxycodone Hcl Immed Release 5 Mg Tablet PO ONCE PRN Pain, Mild (Pain Scale 1-3) Time Spent With Patient Time: Total time spent is greater than 50% in coordination of care (as documented) at patient's floor/unit and/or counseling patient: Time with patient: less than 15 minutes
[2020-12-06] MEDS: HYDROmorphone HCl 0.5 MG/0.5 ML SYRINGE IVPUSH (15:35)
--- NOTE | 2020-12-06 15:37 | P.DS_ITS ---
DS: Providers Provider Date of Service: 12/07/20 Date of admission: 12/06/20 08:22 Primary care physician: Paulo Castellanos DO, MD DS: Diagnosis Discharge Diagnosis (1) Obesity: Status: Acute (2) BMI over 35: Status: Acute (3) S/P laparoscopic sleeve gastrectomy: Status: Acute (4) Esophagitis determined by endoscopy: Status: Acute (5) Adjustment disorder, unspecified: Status: Acute Problem details: Pt has hx of anx & dep and [place] [place] (6) Insomnia: Status: Acute (7) Asthma: Status: Acute (8) Steatosis, liver: Status: Acute (9) Sleep apnea: Status: Acute Problem details: not currently using CPAP (10) GERD (gastroesophageal reflux disease): Status: Acute (11) Hypothyroidism: Status: Acute (12) Insulin dependent diabetes mellitus: Status: Acute (13) Liver fibrosis: Status: Acute (14) Congenital intra-abdominal adhesions: Status: Acute DS: Medications Discharge Medications Home Medications: Home Medications Medication Instructions Recorded Confirmed albuterol sulfate 90 mcg/actuation 2 puff INHALATION Q4-6H PRN 09/29/20 12/05/20 aerosol inhaler fluticasone furoate 200 1 inh INHALATION DAILY 09/29/20 12/05/20 mcg-vilanterol 25 mcg/dose inhalation powder insulin glargine 100 unit/mL 20 unit SUBCUT BEDTIME 09/29/20 12/05/20 subcutaneous solution metformin 500 mg tablet 500 mg PO BID 09/29/20 12/05/20 trazodone 150 mg tablet 150 mg PO BEDTIME PRN 09/29/20 12/05/20 ondansetron HCl [Zofran] 4 mg PO Q12H PRN 12/05/20 12/05/20 Previous Rx's Medication Instructions Recorded cholecalciferol (vitamin D3) 125 125 mcg PO DAILY #30 cap 10/07/20 mcg (5,000 unit) capsule levothyroxine 25 mcg capsule 25 mcg PO DAILY #30 cap 10/07/20 mecobalamin (vitamin B12) 1,000 1,000 mcg SUBLINGUAL DAILY #30 tab 10/07/20 mcg disintegrating tablet,sublingual sucralfate 100 mg/mL oral 10 ml PO BID #420 ml 10/07/20 suspension thiamine HCl (vitamin B1) 100 mg 100 mg PO DAILY #30 tab 10/07/20 tablet pantoprazole 40 mg tablet,delayed 40 mg PO DAILY #30 tab 12/02/20 release polyethylene glycol 3350 17 gram 17 g PO DAILY #14 ea 12/02/20 oral powder packet DS: Summary Time Spent with Patient Time attestation: Total time spent providing and/or coordinating discharge services: 15ADMITTING DIAGNOSIS: morbid obesity, DISCHARGE DIAGNOSIS: same, s/p laparoscopic sleeve gastrectomy PAST SURGICAL HISTORY: PROCEDURE: upper endoscopy, laparoscopic sleeve gastrectomy and repair of hiatal hernia DISCHARGE SUMMARY: History of Present Illness: The patient is a 45 year-old woman with a BMI of 39.6 kg/m2 and associated co-morbidities as described above. The patient had extensive work-up,lost 32.8 lbs preoperatively and was electively scheduled for laparoscopic, possible open sleeve gastrectomy and gastropexy. Risks and complications of the surgery were discussed with the patient in advance, particularly the possibility of , pulmonary embolism, anastomotic leak, bleeding, bowel injury, GERD, cardiac, renal or pulmonary complications. The patient understood all the risks and was in agreement with the surgical plan. Hospital Course: The patient underwent an uneventful laparoscopic sleeve gastrectomy with gastropexy on the day of admission. Postoperatively, the patient was transferred to the surgical floor. The patient was on IV Acetaminophen and IV dilaudid for pain control. Patient was started on bariatric phase 1 diet POD #0. On postoperative day one, the patient was feeling well without nausea, vomiting, fevers, or tachycardia. The patient had some mild incisional pain. The abdomen was soft. On the morning of postoperative day one, the patient was continued on 1 ounce of water or ice every half hour. During the first day, the patient did fairly well, having some incisional pain, but able to ambulate adequately and to tolerate liquids well. Since the patient is doing well, we decided that the patient was ready to be discharged. The patient was given instructions to follow-up with me next week a nd to call my office for any fever over 101, persistent abdominal pain, nausea, vomiting, GERD, symptoms of DVT such as calf tenderness, or leg swelling, or pulmonary embolism such as chest pain or shortness of breath. The patient was also instructed to drink 40-60 ounces of liquids per day using the 1-ounce cups. The patient was given prescription for Tylenol for pain, Zofran prn for nausea, and pantoprazole and carafate. The patient was encouraged to ambulate and use the incentive spirometer. The patient was allowed to shower, but no baths, and encouraged to stay active at home. All of these instructions were given to the patient personally. All questions were answered and the patient understood all instructions, the instructions were also given to the patient in print. Discharge coordination time: Less than 30 minutes Physical Exam Vital Signs: Vital Signs: Last Vital Signs Temp 99.1 F 12/06/20 15:20 Pulse 99 12/06/20 15:30 Resp 18 12/06/20 15:30 BP 141/94 H 12/06/20 15:30 Pulse Ox 99 12/06/20 15:30 Body Mass Index 35.3 DS: Data Data Completed and Pending Pending studies at discharge: Pending at discharge 12/06/20 13:59 Surgical [PTH] Routine Labs on day of discharge: Laboratory Results - last 24 hr 12/06/20 12/06/20 08:10 08:26 POC Glucose 100 COVID-19 ([facility]) Negative COVID-19 Clin Com See Note Discharge Plan Discharge Anticipated Discharge Date/Time: 12/07/20 10:33 Patient Disposition: Home, Self-Care Referrals: Paulo Castellanos DO, MD [Primary Care Provider] - Discharge Medications: Continued levothyroxine 25 mcg capsule 25 mcg PO DAILY Qty: 30 RF: 2 sucralfate 100 mg/mL suspension 10 ml PO BID Qty: 420 RF: 2 pantoprazole 40 mg tablet,delayed release (DR/EC) 40 mg PO DAILY Qty: 30 RF: 2 ondansetron HCl [Zofran] 4 mg tablet 4 mg PO Q12H PRN (Reason: Nausea And Vomiting) RF: 0 trazodone 150 mg tablet 150 mg PO BEDTIME PRN (Reason: Insomnia) RF: 0 Breo Ellipta 200-25 mcg/dose blister with device 1 inh inhalation DAILY RF: 0 albuterol sulfate [Ventolin HFA] 90 mcg/actuation HFA aerosol inhaler 2 puff inhalation Q4-6H PRN (Reason: Shortness Of Breath Or Wheezing) RF: 0 Lantus U-100 Insulin 100 unit/mL solution 20 unit subcut BEDTIME RF: 0 Discontinued thiamine HCl (vitamin B1) 100 mg tablet 100 mg PO DAILY Qty: 30 RF: 2 cholecalciferol (vitamin D3) 125 mcg (5,000 unit) capsule 125 mcg PO DAILY Qty: 30 RF: 2 mecobalamin (vitamin B12) 1,000 mcg tablet,disintegrating 1,000 mcg sublingual DAILY Qty: 30 RF: 2 polyethylene glycol 3350 [Miralax] 17 gram powder in packet 17 g PO DAILY Qty: 14 RF: 0 metformin 500 mg tablet 500 mg PO BID RF: 0 Discharge Orders: Discharge Order (Routine); Ordered 12/07/20 Ordered By: Juan Ramon Zuniga Diet: other Activity on Discharge: No heavy lifting Stand Alone Forms: Patient Portal Discharge page Activity Restrictions/Additional Instructions: No tub baths, sex or returning to work until discussed at first post op appointment. No exercise, alcohol, tobacco or illegal drug use. Continue to use incentive spirometer hourly while awake. Walk in home for 5- 10 minutes every 2 hours during the first week. Continue phase 1 diet today and start phase 2 diet tomorrow morning. Follow all instructions in the bariatric handbook and call with any questions. Care Plan Goals: weight loss Health Concerns: morbid obesity Plan of Treatment: see discharge instructions Discharge Date/Time: 12/07/20 09:49
[2020-12-06] MEDS: Famotidine/PF 20 MG/2 ML VIAL IVPUSH ×2 (15:49→20:45)
[2020-12-06 16:00] LABS: Hematocrit 47.4 % (42-52); Hemoglobin 16.2 g/dl (14.0-18.0)
[2020-12-06 16:23] LABS: Anion Gap 17 (12-20); Blood Urea Nitrogen 14 mg/dL (9-16); Calcium 9.1 mg/dL (8.4-10.2); Carbon Dioxide 24 mmol/L (22-29); Chloride 102 mmol/L (96-108); Creatinine Clr Calc Pharmacy 105.3; Estimated Glomerular Filt Rate > 60; Glucose Random 165 mg/dL (60-115); Potassium 4.6 mmol/L (3.3-5.1); Sodium 138 mmol/L (135-145)
[2020-12-06] MEDS: ceFAZolin Sodium/Dextrose,Iso 2 GM/50 ML PIGGYBACK IV (17:16)
[2020-12-06 17:59] LABS: Glucose, Whole Blood 160 mg/dL (60-115)
[2020-12-06] MEDS: Lactated Ringers 1,000 ML 125 ML IVCONT (18:21)
[2020-12-06 20:18] LABS: Glucose, Whole Blood 188 mg/dL (60-115)
[2020-12-06] MEDS: Insulin Lispro 100 UNIT/ML 3 ML VIAL SUBCUT (20:45)
[2020-12-06] MEDS: 0.9 % Sodium Chloride Flush 3 ML SYRINGE IVFLUSH (20:46)
[2020-12-06] MEDS: Metoprolol Tartrate 5 MG/5 ML VIAL IV (22:26)
[2020-12-06] MEDS: traZODone HCL 50 MG TABLET 150 MG PO (22:27)
[2020-12-07 01:01] LABS: Glucose, Whole Blood 163 mg/dL (60-115)
[2020-12-07] MEDS: ondansetron HCL 4 MG/2 ML VIAL IVPUSH ×2 (01:08→08:11)
[2020-12-07] MEDS: Lactated Ringers 1,000 ML 125 ML IVCONT (02:03)
[2020-12-07 03:22] VITALS: BP 123/66; PULSE 63; RESP 18; TEMP 36.8; O2SAT 94
[2020-12-07 05:11] LABS: Basophils Percent Auto 0.1 % (0-2); Eosinophils Percent Auto 0.1 % (0-4); Hematocrit 42.5 % (42-52); Hemoglobin 14.4 g/dl (14.0-18.0); Imm Gran Abs Auto 0.04 X10*3/uL (0.00-0.03); Imm Gran Pct Auto 0.4 % (0.0-0.4); Lymphocytes Absolute Auto 0.5 X10*3/uL (1.2-4.9); Lymphocytes Percent Auto 4.9 % (20-40); MANUAL DIFF FLAG SCAN; Mean Corpuscular HGB Conc 33.9 g/dl (31.0-36.0); Mean Corpuscular Volume 91.6 fL (80-98); Mean Platelet Volume 10.6 fL (9.4-12.4); Monocytes Absolute Auto 0.6 X10*3/uL (0.1-1.2); Monocytes Percent Auto 5.7 % (2-11); Neutrophils Absolute Auto 9.3 X10*3/uL (2.0-8.3); Neutrophils Percent Auto 88.8 % (45-73); Platelet Count 191 X10*3/uL (160-400); Red Blood Count 4.64 X10*6/uL (4.60-5.80); Red Cell Distribution Width 12.7 % (11.0-16.0); SCAN SMEAR FLAG 1; White Blood Count 10.5 X10*3/uL (4.8-10.8)
[2020-12-07 05:24] LABS: Glucose, Whole Blood 151 mg/dL (60-115)
[2020-12-07] MEDS: Levothyroxine Sodium 25 MCG TABLET PO (05:29)
[2020-12-07 05:32] LABS: SLIDE REVIEW VERIFIED
[2020-12-07 05:35] LABS: Anion Gap 17 (12-20); Blood Urea Nitrogen 12 mg/dL (9-16); Carbon Dioxide 21 mmol/L (22-29); Chloride 103 mmol/L (96-108); Creatinine Clr Calc Pharmacy 147.1; Estimated Glomerular Filt Rate > 60; Glucose Random 147 mg/dL (60-115); Potassium 4.1 mmol/L (3.3-5.1); Sodium 137 mmol/L (135-145)
[2020-12-07] MEDS: Fluticasone/Vilanterol 200/25 BLST.W.DEV 1 PUFF INHALE (07:35)
[2020-12-07 07:36] VITALS: PULSE 84; O2SAT 96
[2020-12-07 07:49] VITALS: BP 117/76; PULSE 64; RESP 18; TEMP 36.5; O2SAT 96
[2020-12-07] MEDS: Famotidine/PF 20 MG/2 ML VIAL IVPUSH (08:12)
[2020-12-07 08:53] LABS: Glucose, Whole Blood 128 mg/dL (60-115)
--- NOTE | 2020-12-07 09:07 | MHC.CM.PN ---
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 HE HAS SLEEP APNEA AND HAS A MACHINE BUT IS NOT ABLE TO KEEP IT ON MOST OF THE NIGHT HIS DOCTOR IS AWRE OF THIS AND HE HAS TRIED MANY DIFFERENT DEVICES. HE REPORTED THAT HIS MOTHER 7 YEARS AGO AND HE WENT INTO A DIFFICULT TIME WITH DEPRESSION AND WAS HOSPITALIZED INPATIENT PSYCH HE CONTINUES TO BE FOLLOWED BY A PSYCHIATRIST DR GEORGE SPENCER, AND SHE MANAGES HIS MEDICATIONS, HE ALSO HAS INSOMINA SINCE THEN AND IS WORKING WITH HIS PSYCHIATRIST. HE CONFIRMED HIS IS HIS HEALTH CARE PROXY I REQUESTED THAT HE MAIL IN A COPY OF HIS HCP TO [facility], DISCHARGE PLAN HOME NO SERVICES PCP AND BARIATRIC SURGERY FOLLOW UP SELF RESUMPTION OF HIS MENTAL HEALTH COUNSELING REQUESTED COPY OF THE HCP BE MAILED TO THE [facility]
--- NOTE | 2020-12-07 12:22 | HO.POSTANES ---
Post Anesthesia Evaluation Post Anesthesia Evaluation Vital Signs: Vital Signs Temp Pulse Resp BP Pulse Ox 12/07/20 07:49 97.7 F 64 18 117/76 96 12/07/20 03:22 98.2 F 63 18 123/66 94 Anesthesia: General Endotracheal-GETA Mental Status: Awake Pain Control: Satisfactory Nausea/Vomiting: None Hydration: Adequate Anesthesia-Related Issues: No Anes. Related Issues
== END 2020-12-07 09:49 | disposition home or self-care (01) | DRG 403 ==
LOC: HO.SSSA 08:26 → HO.S3 08:48
PROVIDERS: Physician Assistant; Admitting Provider Surgery; PCP Internal Medicine; Visit Provider Surgery
PROC: 0DB64Z3 Excision of Stomach, Percutaneous Endoscopic Approach, Vertical (ICD-10-PCS; CPT 43845; principal; 2020-12-06 10:00)
DX: E66.01 Morbid (severe) obesity due to excess calories (principal); E11.8 Type 2 diabetes mellitus with unspecified complications; K76.0 Fatty (change of) liver, not elsewhere classified; E03.9 Hypothyroidism, unspecified; K21.9 Gastro-esophageal reflux disease without esophagitis; F43.20 Adjustment disorder, unspecified; K66.0 Peritoneal adhesions (postprocedural) (postinfection); Z68.35 Body mass index [BMI] 35.0-35.9, adult; G47.30 Sleep apnea, unspecified; K20.90 Esophagitis, unspecified without bleeding; J45.909 Unspecified asthma, uncomplicated; Z79.4 Long term (current) use of insulin; Z79.890 Hormone replacement therapy; Z79.899 Other long term (current) drug therapy
CPT/HCPCS: 36415; 80048; 80053; 80061; 82947; 83036; 83525; 84443; 85014; 85018; 85025; 85610; 85730; 86140; 86850; 86900; 87635; 88307; 88342; 99024; A4649; J0131; J0690; J1100; J1170; J2250; J2370; J2405; J3010

== ENCOUNTER → 2020-12-12 07:34 | Outpatient (BNVA) | payer OTHER, SELFPAY | PROVIDERS: PCP Internal Medicine; Visit Provider Surgery ==

== ENCOUNTER → 2021-01-11 08:18 | Outpatient (BNVA) | payer OTHER, SELFPAY | PROVIDERS: PCP Internal Medicine; Visit Provider Surgery ==

== ENCOUNTER → 2021-02-10 08:29 | Outpatient (BNVA) | payer OTHER, SELFPAY | PROVIDERS: PCP Internal Medicine; Visit Provider Surgery ==

== ENCOUNTER → 2021-03-27 07:03 | Outpatient (BNVA) | payer OTHER, SELFPAY | PROVIDERS: PCP Internal Medicine; Visit Provider Surgery ==

== ENCOUNTER → 2021-05-26 09:47 | Outpatient (BNVA) | payer OTHER, SELFPAY | PROVIDERS: PCP Internal Medicine; Visit Provider Physician Assistant Surgical ==

== ENCOUNTER → 2021-06-30 08:05 | Outpatient (BNVA) | payer OTHER, SELFPAY | PROVIDERS: PCP Internal Medicine; Visit Provider Physician Assistant Surgical ==

== ENCOUNTER → 2021-08-04 10:49 | Outpatient (BNVA) | payer OTHER, SELFPAY | PROVIDERS: PCP Internal Medicine; Visit Provider Physician Assistant Surgical ==

== ENCOUNTER → 2021-08-25 08:02 | Outpatient (BNVA) | payer OTHER, SELFPAY | PROVIDERS: PCP Internal Medicine; Visit Provider Dietitian, Registered | DX: E66.3 Overweight (principal) | CPT/HCPCS: 97803 ==

== ENCOUNTER → 2021-09-01 08:13 | Outpatient (BNVA) | payer OTHER, SELFPAY | PROVIDERS: PCP Internal Medicine; Visit Provider Physician Assistant Surgical | DX: E66.3 Overweight (principal) ==